=== PATIENT | female | born 1960 | race Caucasian/White ===

== ENCOUNTER 2019-12-25 00:15 | Inpatient (IN) | payer MEDICAID ==
[~2019-12-25] VITALS: Ht 160 cm; Wt 59.0 kg
[2019-12-25] VITALS (7 sets, daily range): BP systolic 118–145; BP diastolic 62–85
[~2019-12-25 00:15] MED LIST: AMITRIPTYLLINE PO; ENAL10TA9 PO; LORA10CA7 PO; SIMV10TA84
[2019-12-25] MEDS ORDERED: NITROGLYCERIN 0.4 MG SL TAB SL ONE (00:30)
[2019-12-25] MEDS ORDERED: ASPirin 81 mg TAB PO ONE (00:30)
[2019-12-25 00:52] LABS: Basophils # (auto) 0.1 10 ^3/uL (0-0.2); Basophils % (auto) 0.7 % (0.0-2.0); Eosinophils # (auto) 0.1 10 ^3/uL (0-0.8); Eosinophils % (auto) 0.6 % (0.0-7.0); Hematocrit 42.8 % (36.0-46.0); Hemoglobin 13.9 g/dL (12.2-16.2); Lymphocytes # (auto) 1.5 10 ^3/uL (0.4-5.4); Lymphocytes % (auto) 8.3 % (10.0-50.0); Mean Corpuscular Hemoglobin 29.2 pg (28.0-32.0); Mean Corpuscular Hgb Conc. 32.4 g/dL (32.0-36.0); Mean Corpuscular Volume 89.9 fL (80.0-100.0); Monocytes # (auto) 1.3 10 ^3/uL (0-1.3); Monocytes % (auto) 6.8 % (0.0-12.0); Neutrophils # (auto) 15.6 10 ^3/uL (1.6-8.6); Neutrophils % (auto) 83.6 % (37.0-80.0); Platelet Count (auto) 250 10^3/uL (140-450); Red Blood Cells 4.76 10^6/uL (4.0-5.20); Red Cell Distribution Width 15.8 % (11.8-14.3); White Blood Cell 18.6 10^3/uL (4.4-10.8)
[2019-12-25] MEDS ORDERED: MORPHINE SULFATE 4 MG/ML SYR/VIAL IV ONE (01:00)
[2019-12-25] MEDS ORDERED: ONDANSETRON HCL 4 MG/2 ML VIAL IV ONE (01:00)
[2019-12-25 01:07] LABS: INR 1.09 (0.9-1.15); Partial Thromboplastin Time 24.5 sec (23.64-32.05)
[2019-12-25 01:12] LABS: Potassium 3.6 mmol/L (3.5-5.1)
[2019-12-25 01:15] LABS: Albumin 4.1 g/dL (3.4-5.0); BUN/Creatinine Ratio 9.1; Magnesium 1.8 mg/dL (1.6-2.6)
[2019-12-25 01:18] LABS: Bilirubin, Total 0.6 mg/dL (0.2-1.0); Total Protein 7.6 g/dL (6.4-8.2)
[2019-12-25] MEDS ORDERED: PROPOFOL 0 ML IV ONE (02:42)
[2019-12-25] MEDS ORDERED: LORazepam 0.5 MG TAB PO PRN (03:30)
[2019-12-25] MEDS ORDERED: NITROGLYCERIN 0.4 MG SL TAB SL PRN (03:30)
[2019-12-25] MEDS ORDERED: ZOLPIDEM TARTRATE 5 MG TAB PO PRN (03:30)
[2019-12-25] MEDS ORDERED: ONDANSETRON HCL 4 MG/2 ML VIAL IV PRN (03:30)
--- NOTE | 2019-12-25 04:45 | NUR ---
ASSUMED PATIENT CARE Telemetry admit from ER JAS GONZÁLSE admitted to Telemetry unit. Patient oriented to Miranda Alva, primary RN, unit, room, bed, and unit policies regarding patient care and visiting hours. Patient now on continuous telemetry monitoring, tele box #[id number] and telemetry reading on arrival to unit is SR 94 . Patient is on room air, weighed by bed scale and encouraged to call if they need something. All questions and concerns addressed, patient verbalized understanding. Note:
--- NOTE | 2019-12-25 04:50 | NUR ---
SEIZURE AND FALL PRECAUTIONS IN PLACE.
[2019-12-25] MEDS ORDERED: TIZA4TAB3 PO (05:17)
[2019-12-25] MEDS ORDERED: LEVE500T3 PO (05:17)
[2019-12-25] MEDS ORDERED: ASPI325T25 PO (05:17)
[2019-12-25] MEDS ORDERED: CITA-73 PO (05:17)
[2019-12-25] MEDS ORDERED: MONT10TA34 PO (05:17)
[2019-12-25] MEDS ORDERED: LEVO125T7 PO (05:17)
[2019-12-25] MEDS ORDERED: FENO160T8 PO (05:17)
--- NOTE | 2019-12-25 06:00 | NUR ---
PAGED HOSPITALIST PATIENT BLOOD PRESSURE 170/82, PRN NOT ORDERED. PATIENT NEEDS DIET ORDER. PATIENT REPORTS THAT SHE HAD SEIZURE IN ER; PRN NOT ORDERED.
--- NOTE | 2019-12-25 06:45 | NUR ---
PATIENT BLOOD PRESSURE 170/82, PRN NOT ORDERED. PATIENT NEEDS DIET ORDER. PATIENT REPORTS THAT SHE HAD SEIZURE IN ER; PRN NOT ORDERED.
[2019-12-25] MEDS: LORATADINE 10 MG TAB PO SCH (08:51)
[2019-12-25] MEDS: ASPirin 81 mg TAB PO SCH (08:51)
[2019-12-25] MEDS: CLOPIDOGREL BISULFATE 75 MG TAB PO SCH (08:52)
[2019-12-25] MEDS: DOCUSATE SOD 100 MG CAP PO SCH (08:52)
[2019-12-25] MEDS ORDERED: CARVEDILOL 3.125 MG TAB PO SCH (10:00)
[2019-12-25] MEDS ORDERED: LISINOPRIL 10 MG TAB PO SCH (10:00)
[2019-12-25] MEDS ORDERED: ENOXAPARIN SOD 60 MG/0.6 ML SYRINGE SC SCH (10:00)
[2019-12-25] MEDS ORDERED: OMEP-263 PO (10:46)
[2019-12-25] MEDS ORDERED: GABA300C10 PO (10:48)
[2019-12-25] MEDS ORDERED: TOPI200T43 PO (10:48)
[2019-12-25] MEDS ORDERED: ATOR1TAB PO (10:51)
--- NOTE | 2019-12-25 11:15 | NUR ---
Dr. Vanegas at bed side to see pt, doctor discussed the plan of care with pt. Orders received to request the records from pt's care navigator Dr. Lynn, to restart the home medications, and to do an EKG, doctor informed of pt not having a diet, pt having high BP in the morning and no BP prn medication, and pt c/o chest pain and no pain medication ordered.
[2019-12-25 11:28] LABS: Calcium 10.6 mg/dL (8.5-10.1); Magnesium 1.9 mg/dL (1.6-2.6); Potassium 3.6 mmol/L (3.5-5.1)
--- NOTE | 2019-12-25 11:30 | NUR ---
Chester/ANASTACIA / project reservoir engineer at bed side to see pt, as per Chester pt will be schedule for the heart cath for tomorrow, orders received to give a one time dose of Morphine 2 mg IV for chest pain now, to order a cardiac diet and Chester will look at pt's chart to order prn BP medications.
[2019-12-25 11:33] LABS: BUN/Creatinine Ratio 13.1
[2019-12-25] MEDS ORDERED: MORPHINE SULF INJ 2 MG/ML SYRINGE 1ML IV ONE (11:45)
--- NOTE | 2019-12-25 11:45 | NUR ---
Dr. Vanegas at unit, doctor informed of critical troponin lab value and given pt's EKG to see, orders received to prep pt for laboratory apparatus glass grinder today.
[2019-12-25 12:06] LABS: Basophils # (auto) 0 10 ^3/uL (0-0.2); Basophils % (auto) 0.4 % (0.0-2.0); Eosinophils # (auto) 0.1 10 ^3/uL (0-0.8); Eosinophils % (auto) 0.7 % (0.0-7.0); Hematocrit 36.4 % (36.0-46.0); Hemoglobin 11.7 g/dL (12.2-16.2); Lymphocytes # (auto) 2.7 10 ^3/uL (0.4-5.4); Lymphocytes % (auto) 20.5 % (10.0-50.0); Mean Corpuscular Hemoglobin 28.8 pg (28.0-32.0); Mean Corpuscular Hgb Conc. 32.1 g/dL (32.0-36.0); Mean Corpuscular Volume 89.5 fL (80.0-100.0); Monocytes # (auto) 0.9 10 ^3/uL (0-1.3); Monocytes % (auto) 6.6 % (0.0-12.0); Neutrophils # (auto) 9.5 10 ^3/uL (1.6-8.6); Neutrophils % (auto) 71.8 % (37.0-80.0); Platelet Count (auto) 211 10^3/uL (140-450); Red Blood Cells 4.07 10^6/uL (4.0-5.20); White Blood Cell 13.2 10^3/uL (4.4-10.8)
[2019-12-25] MEDS ORDERED: LIDOCAINE 2%HCL (LOCAL ANESTH.) INJ 20ML MDV ONE (12:22)
[2019-12-25] MEDS ORDERED: IOHEXOL 350 MG/ML 100ML IJ ONE (12:22)
[2019-12-25] MEDS ORDERED: PROMETHAZINE HCL 25 MG/ML 1ML IV ONE (12:30)
--- NOTE | 2019-12-25 12:40 | NUR ---
Pt taken to catholic priest.
[2019-12-25] MEDS ORDERED: cloNIDine HCL 0.1 MG TAB PO PRN (12:45)
[2019-12-25] MEDS ORDERED: hydrALAZINE HCL 20 MG/ML VL IV PRN (12:45)
[2019-12-25] MEDS ORDERED: fentaNYL CITRATE 100 MCG/2 ML VL ONE (12:56)
[2019-12-25] MEDS ORDERED: MIDAZOLAM HCL 1MG/1ML-2 ML VIAL ONE (12:56)
[2019-12-25] MEDS ORDERED: SODIUM CHL 0.9% 0 ML ONE (12:58)
[2019-12-25] MEDS ORDERED: ANGIOMAX 250 MG VIAL IV ONE (12:58)
[2019-12-25] MEDS ORDERED: HEPARIN SODIUM (PORCINE) 5000 UNITS/ML 1ML VIAL ONE (12:58)
[2019-12-25] MEDS ORDERED: VERAPAMIL 2.5MG/ML INJ 2ML VIAL IV ONE (12:58)
[2019-12-25] MEDS ORDERED: DEXTROSE (50%) 50ML SYRG IV PRN (13:30)
[2019-12-25] MEDS ORDERED: ONDANSETRON HCL 4 MG/2 ML VIAL ONE (13:37)
[2019-12-25] MEDS: GABAPENTIN 300 MG CAP PO SCH ×3 (14:00→22:19)
--- NOTE | 2019-12-25 15:09 | NUR ---
Pt back in the room from technology lab teacher, rt wrist vascular band, as per technology lab teacher nurse start deflating vasc band starting 1515, v/s BP 118/73, HR 78, O2 sat 98% at 2 lit of O2 via n/c, will continue to monitor pt.
--- NOTE | 2019-12-25 15:15 | NUR ---
Vascular band Removed 2 ml of air from vascular band, no bleeding noticed, will continue to monitor pt.
--- NOTE | 2019-12-25 15:45 | NUR ---
Vascular band Attempted to removed 2 ml of air from vascular band, noticed bleeding, no air removed will monitor for 30 min.
--- NOTE | 2019-12-25 16:15 | NUR ---
Vascular band No more bleeding noticed at this time, removed 2 ml of air from vascular band, no bleeding noticed, will continue to monitor pt.
--- NOTE | 2019-12-25 16:45 | NUR ---
Vascular band Attempted to removed 2 ml of air from vascular band, noticed bleeding, no air removed will monitor for 30 min.
[2019-12-25] MEDS: InsuLIN REG 1unit/0.01ml Soln (100units/ml) SC SCH ×2 (17:00→22:00)
[2019-12-25] MEDS: ACCU-CHEK COMFORT CURVE STRIP VI SCH ×2 (17:00→22:26)
--- NOTE | 2019-12-25 17:15 | NUR ---
Vascular band No more bleeding noticed at this time, removed 2 ml of air from vascular band, no bleeding noticed, will continue to monitor pt.
--- NOTE | 2019-12-25 17:45 | NUR ---
Vascular band Removed 2 ml of air from vascular band, no bleeding noticed, will continue to monitor pt.
--- NOTE | 2019-12-25 18:15 | NUR ---
Vascular band No bleeding noticed at this time, removed 2 ml of air from rt wrist vascular band, no bleeding noticed, will continue to monitor pt.
--- NOTE | 2019-12-25 18:40 | NUR ---
Vascular band Attempted to remove 2 ml of air from rt wrist vascular band, noticed bleeding at this time, reinsert the 2 ml of air to the vascular band, will monitor pt for 30 min.
--- NOTE | 2019-12-25 20:41 | NUR ---
VASCULAR BAND. REMAINING 2MLS REMOVED. NO BLEEDING NOTED. VASCULAR BAND REMAINS ON, WILL ASSESS IN 15 MIN.
--- NOTE | 2019-12-25 21:10 | NUR ---
VASCULAR BAND REMOVED. DRESSED WITH STERILE GAUZE AND TEGADERM. NO BLEEDING NOTED. DRESSING IS CLEAN, DRY AND INTACT. PATIENT TOLERATED WELL. WILL CONTINUE TO MONITOR.
[2019-12-25] MEDS ORDERED: ATORVASTATIN 20 MG TAB PO SCH ×2 (22:00)
[2019-12-25] MEDS ORDERED: AMITRIPTYLINE HCL 25 MG TAB PO SCH (22:00)
[2019-12-25] MEDS: levETIRAcetam 500 MG TAB PO SCH (22:17)
[2019-12-25] MEDS: METOPROLOL TARTRATE 25 MG TAB PO SCH (22:19)
--- NOTE | 2019-12-25 22:28 | NUR ---
DRESSING AT RIGHT WRIST CLEAN, DRY AND INTACT.
--- NOTE | 2019-12-25 22:29 | NUR ---
PATIENT UP TO RESTROOM WITH STANDBY ASSISTANCE. STEADY GAIT NOTED.
[2019-12-26] VITALS (7 sets, daily range): BP systolic 84–117; BP diastolic 51–75
[2019-12-26] MEDS: GABAPENTIN 300 MG CAP PO SCH ×2 (06:20→13:55)
[2019-12-26 06:24] LABS: Basophils # (auto) 0 10 ^3/uL (0-0.2); Basophils % (auto) 0.5 % (0.0-2.0); Eosinophils # (auto) 0.2 10 ^3/uL (0-0.8); Eosinophils % (auto) 2.7 % (0.0-7.0); Hematocrit 34.7 % (36.0-46.0); Hemoglobin 11.6 g/dL (12.2-16.2); Lymphocytes # (auto) 2.2 10 ^3/uL (0.4-5.4); Lymphocytes % (auto) 27.2 % (10.0-50.0); Mean Corpuscular Hemoglobin 30.4 pg (28.0-32.0); Mean Corpuscular Hgb Conc. 33.5 g/dL (32.0-36.0); Mean Corpuscular Volume 90.6 fL (80.0-100.0); Monocytes # (auto) 0.7 10 ^3/uL (0-1.3); Monocytes % (auto) 8.7 % (0.0-12.0); Neutrophils % (auto) 60.9 % (37.0-80.0); Platelet Count (auto) 174 10^3/uL (140-450); Red Blood Cells 3.83 10^6/uL (4.0-5.20); White Blood Cell 8.2 10^3/uL (4.4-10.8)
[2019-12-26] MEDS: InsuLIN REG 1unit/0.01ml Soln (100units/ml) SC SCH ×3 (06:25→17:00)
[2019-12-26] MEDS: ACCU-CHEK COMFORT CURVE STRIP VI SCH ×3 (06:26→17:00)
[2019-12-26 06:44] LABS: Albumin 3.3 g/dL (3.4-5.0); Calcium 10.6 mg/dL (8.5-10.1); Magnesium 2.1 mg/dL (1.6-2.6); Potassium 3.7 mmol/L (3.5-5.1)
[2019-12-26 06:49] LABS: BUN/Creatinine Ratio 10.2; Bilirubin, Total 0.7 mg/dL (0.2-1.0); Total Protein 6.4 g/dL (6.4-8.2)
[2019-12-26] MEDS ORDERED: LEVOTHYROXINE SODIUM 50 MCG TAB PO SCH (07:00)
--- NOTE | 2019-12-26 08:00 | NUR ---
Received pt resting in bed, call light within reach, rt wrist dressing clean and dry, no pain noted or reported, will continue to monitor pt.
[2019-12-26] MEDS: LORATADINE 10 MG TAB PO SCH (09:11)
[2019-12-26] MEDS: DOCUSATE SOD 100 MG CAP PO SCH (09:12)
[2019-12-26] MEDS: METOPROLOL TARTRATE 25 MG TAB PO SCH (09:13)
[2019-12-26] MEDS: levETIRAcetam 500 MG TAB PO SCH (09:13)
[2019-12-26] MEDS: CLOPIDOGREL BISULFATE 75 MG TAB PO SCH (09:13)
[2019-12-26] MEDS: ASPirin 81 mg TAB PO SCH (09:14)
[2019-12-26] MEDS ORDERED: LISINOPRIL 20 MG TAB PO SCH (10:00)
[2019-12-26] MEDS ORDERED: CITALOPRAM HYDROBR 20 MG TAB PO SCH (10:00)
[2019-12-26] MEDS ORDERED: MONTELUKAST SODIUM 10 MG TAB PO SCH (10:00)
--- NOTE | 2019-12-26 11:50 | NUR ---
Dr. Vanegas at bed side to see pt, doctor discussed the plan of care with pt.
--- NOTE | 2019-12-26 12:06 | NUR ---
1130 12/26/19 - Faxed to [employer] at [phone] the following face sheet, Order for [facility] life vest, H/P, EKG, Echo, progress notes, pending approval and delivery.
--- NOTE | 2019-12-26 14:50 | NUR ---
Chester, TRAILHEAD CONSTRUCTION WORKER / cardiology in to see pt.
[2019-12-26] MEDS ORDERED: ASPI81CH43 PO (16:05)
[2019-12-26] MEDS ORDERED: CLOP75TA28 PO (16:05)
[2019-12-26] MEDS ORDERED: CAR3125T PO (16:05)
[2019-12-26] MEDS ORDERED: SACU1TAB PO (16:05)
--- NOTE | 2019-12-26 18:09 | NUR ---
Informed pt and pt's daughter Emily that as per Dr. Vanegas the pt's calcium level is high and pt needs to have a mammogram and a chest CT scan done to r/o any malignancies, discussed with pt's daughter the plan of care.
--- NOTE | 2019-12-26 18:35 | NUR ---
[employer] vest counter sales representative at bed side to measure and educate pt.
--- NOTE | 2019-12-26 19:55 | NUR ---
PATIENT DISCHARGED PATIENT OFF FLOOR VIA WHEELCHAIR. DAUGHTER BRYSON PRESENT IN MAIN LOBBY FOR VAC PRESS OPERATOR. ALL BELONGINGS WITH PATIENT. DISCHARGE INSTRUCTIONS AND PAPERWORK WITH PATIENT. INSTRUCTIONS REVIEWED WITH PATIENT; PATIENT VERBALIZED UNDERSTANDING. ZOLLE VEST WITH PATIENT. NO S/SX OF DISTRESS, SOB OR PAIN. INSTRUCTED PATIENT TO RETURN TO ER OR CALL 911 IF CHEST PAIN CONTINUES. TELE BOX 69 RETURNED TO TELE MONITORS. IVS DISCONTINUED, APPLIED PRESSURE AND DRESSED. PATIENT TOLERATED WELL. NO BLEEDING NOTED.
[2019-12-26] MEDS ORDERED: CARVEDILOL 3.125 MG TAB PO SCH (22:00)
[2019-12-26] MEDS ORDERED: SACUBITRIL-VALSARTAN 24mg/26mg TAB PO SCH (22:00)
== END 2019-12-26 19:55 | disposition home or self-care (01) | DRG 174 ==
LOC: ER 00:15 → EDBD 00:15 → TELE 00:16 → TELE-WESTW 04:41
PROVIDERS: ADMIT Hospitalist; ATTEND Internal Medicine
PROC: 4A023N7 Measurement of Cardiac Sampling and Pressure, Left Heart, Percutaneous Approach (ICD-10-PCS; principal; 2019-12-25)
PROC: B2111ZZ Fluoroscopy of Multiple Coronary Arteries using Low Osmolar Contrast (ICD-10-PCS; 2019-12-25)
PROC: B2151ZZ Fluoroscopy of Left Heart using Low Osmolar Contrast (ICD-10-PCS; 2019-12-25)
PROC: 027035Z Dilation of Coronary Artery, One Artery with Two Drug-eluting Intraluminal Devices, Percutaneous Approach (ICD-10-PCS; 2019-12-25)
PROC: 02703ZZ Dilation of Coronary Artery, One Artery, Percutaneous Approach (ICD-10-PCS; 2019-12-25)
DX: I21.4 Non-ST elevation (NSTEMI) myocardial infarction (principal); I16.0 Hypertensive urgency; E03.9 Hypothyroidism, unspecified; E11.9 Type 2 diabetes mellitus without complications; E78.5 Hyperlipidemia, unspecified; E83.52 Hypercalcemia; I11.0 Hypertensive heart disease with heart failure; I25.10 Atherosclerotic heart disease of native coronary artery without angina pectoris; F17.210 Nicotine dependence, cigarettes, uncomplicated; I25.2 Old myocardial infarction; Z80.3 Family history of malignant neoplasm of breast; Z80.41 Family history of malignant neoplasm of ovary; Z82.3 Family history of stroke; Z82.49 Family history of ischemic heart disease and other diseases of the circulatory system; Z90.710 Acquired absence of both cervix and uterus; Z90.89 Acquired absence of other organs; Z88.1 Allergy status to other antibiotic agents; Z88.8 Allergy status to other drugs, medicaments and biological substances; Z88.6 Allergy status to analgesic agent; I50.22 Chronic systolic (congestive) heart failure
CPT/HCPCS: 36415; 71045; 71250; 80048; 80053; 80061; 82962; 83036; 83735; 84439; 84443; 84484; 85025; 85379; 85610; 85730; 87040; 92920; 92928; 93005; 93306; 93458; 96374; 96375; 99152; 99153; C1874; C1887; G0378; J2250; J2405; J2704

== ENCOUNTER 2022-10-01 10:37 | Emergency (ER) | payer MEDICAID ==
[~2022-10-01] VITALS: Ht 170.2 cm; Wt 81.8 kg
[~2022-10-01 10:37] MED LIST changes: -AMITRIPTYLLINE PO; +ASPI81CH43 PO; +ATOR-47 PO; +CAR3125T PO; +CITA-73 PO; +CLOP75TA28 PO; -ENAL10TA9 PO; +FENO160T8 PO; +GABA300C10 PO; +LEVE500T3 PO; +LEVO125T7 PO; +MONT-8 PO; +OMEP-263 PO; +SACU1TAB PO; -SIMV10TA84; +TIZA4TAB7 PO; +TOPI200T43 PO
[2022-10-01 11:42] LABS: Basophils # (auto) 0.1 10 ^3/uL (0-0.2); Monocytes # (auto) 0.8 10 ^3/uL (0-1.3); Nucleated Red Blood Cells % 0.1 %; Red Cell Distribution Width 17.7 % (11.8-14.3)
[2022-10-01 11:45] LABS: Potassium 4.2 mmol/L (3.5-5.1)
[2022-10-01 11:46] LABS: Eosinophils # (auto) 0.1 10 ^3/uL (0-0.8); Hematocrit 44.8 % (36.0-46.0); Hemoglobin 14.4 g/dL (12.2-16.2); Lymphocytes # (auto) 3.4 10 ^3/uL (0.4-5.4); Lymphocytes % (auto) 26.5 % (10.0-50.0); Mean Corpuscular Hemoglobin 24.5 pg (28.0-32.0); Mean Corpuscular Hgb Conc. 32.2 g/dL (32.0-36.0); Mean Corpuscular Volume 76.2 fL (80.0-100.0); Monocytes % (auto) 6.2 % (0.0-12.0); Neutrophils # (auto) 8.4 10 ^3/uL (1.6-8.6); Neutrophils % (auto) 65.3 % (37.0-80.0); Red Blood Cells 5.88 10^6/uL (4.0-5.20); White Blood Cell 12.8 10^3/uL (4.4-10.8)
[2022-10-01 11:52] LABS: Albumin 4.5 g/dL (3.4-5.0); BUN/Creatinine Ratio 19.4 (10.0-20.0); Bilirubin, Total 0.9 mg/dL (0.2-1.0); Total Protein 7.4 g/dL (6.4-8.2)
[2022-10-01 11:56] LABS: Calcium 12.5 mg/dL (8.5-10.1)
[2022-10-01] MEDS ORDERED: SODIUM CHLORIDE 0.9% 1,000 ML IV ONE ×2 (14:00→16:00)
[2022-10-01 15:01] LABS: Urine Bacteria NONE SEEN /hpf (None Seen); Urine Blood Negative /uL (Negative); Urine Mucus FEW (None Seen); Urine Specific Gravity 1.041 (1.001-1.035); Urine WBC 20 /hpf (0 - 5)
[2022-10-01] MEDS ORDERED: ONDA-144 PO (15:15)
[2022-10-01 15:37] LABS: Basophils # (auto) 0.1 10 ^3/uL (0-0.2); Basophils % (auto) 0.9 % (0.0-2.0); Eosinophils # (auto) 0.1 10 ^3/uL (0-0.8); Hemoglobin 10.7 g/dL (12.2-16.2); Lymphocytes # (auto) 3.7 10 ^3/uL (0.4-5.4); Monocytes # (auto) 0.8 10 ^3/uL (0-1.3); Nucleated Red Blood Cells % 0.1 %
[2022-10-01 15:39] LABS: Eosinophils % (auto) 0.9 % (0.0-7.0); Hematocrit 33.6 % (36.0-46.0); Lymphocytes % (auto) 34.4 % (10.0-50.0); Mean Corpuscular Hemoglobin 24.4 pg (28.0-32.0); Mean Corpuscular Hgb Conc. 31.8 g/dL (32.0-36.0); Mean Corpuscular Volume 76.8 fL (80.0-100.0); Monocytes % (auto) 7.3 % (0.0-12.0); Neutrophils # (auto) 6.1 10 ^3/uL (1.6-8.6); Neutrophils % (auto) 56.5 % (37.0-80.0); Red Blood Cells 4.38 10^6/uL (4.0-5.20); Red Cell Distribution Width 17.6 % (11.8-14.3); White Blood Cell 10.8 10^3/uL (4.4-10.8)
[2022-10-01 16:19] LABS: Calcium 9.4 mg/dL (8.5-10.1); Potassium 3.6 mmol/L (3.5-5.1)
[2022-10-01 16:23] LABS: BUN/Creatinine Ratio 20.8 (10.0-20.0); Bilirubin, Total 0.5 mg/dL (0.2-1.0); Total Protein 5.2 g/dL (6.4-8.2)
[2022-10-01 17:59] LABS: Basophils # (auto) 0.1 10 ^3/uL (0-0.2); Eosinophils # (auto) 0.1 10 ^3/uL (0-0.8); Monocytes # (auto) 0.7 10 ^3/uL (0-1.3)
[2022-10-01 18:02] LABS: Eosinophils % (auto) 0.9 % (0.0-7.0); Hematocrit 36.4 % (36.0-46.0); Hemoglobin 11.5 g/dL (12.2-16.2); Lymphocytes # (auto) 3.5 10 ^3/uL (0.4-5.4); Lymphocytes % (auto) 36.4 % (10.0-50.0); Mean Corpuscular Hemoglobin 24.3 pg (28.0-32.0); Mean Corpuscular Hgb Conc. 31.7 g/dL (32.0-36.0); Mean Corpuscular Volume 76.7 fL (80.0-100.0); Monocytes % (auto) 7.3 % (0.0-12.0); Neutrophils # (auto) 5.3 10 ^3/uL (1.6-8.6); Neutrophils % (auto) 54.4 % (37.0-80.0); Nucleated Red Blood Cells % 0.2 %; Red Blood Cells 4.75 10^6/uL (4.0-5.20); Red Cell Distribution Width 17.3 % (11.8-14.3); White Blood Cell 9.7 10^3/uL (4.4-10.8)
[2022-10-01 19:35] VITALS: BP 139/87
[2022-10-01] MEDS ORDERED: ONDANSETRON ODT 4 MG TAB PO ONE (19:45)
== END 2022-10-01 19:52 | disposition home or self-care (01) ==
LOC: EDBD 10:37 → ER 10:37
DX: K59.00 Constipation, unspecified (principal); D50.9 Iron deficiency anemia, unspecified; E78.5 Hyperlipidemia, unspecified; I10 Essential (primary) hypertension; F17.210 Nicotine dependence, cigarettes, uncomplicated; Z90.710 Acquired absence of both cervix and uterus
CPT/HCPCS: 36415; 74176; 80053; 81001; 83605; 83690; 84484; 85025; 93005; 96360; 96361; 99284; J7030; Q0162

== ENCOUNTER 2022-12-29 14:45 | Inpatient (IN) | payer MEDICAID ==
[2022-12-29] VITALS (33 sets, daily range): BP systolic 119–143; BP diastolic 50–86; PULSE 80–101; RESP 11–22; TEMP 97.2–99.4; O2SAT 92–99
[~2022-12-29] VITALS: Ht 160 cm; Wt 48.2 kg
[~2022-12-29 14:45] MED LIST changes: +FENO160T PO; -FENO160T8 PO; +GABA-1250 PO; -GABA300C10 PO; +LORA10CA PO; -LORA10CA7 PO; -OMEP-263 PO; +OMEP-448 PO; +ONDA-144 PO; +TIZA-142 PO; -TIZA4TAB7 PO
[2022-12-29] MEDS ORDERED: ONDANSETRON HCL 4 MG/2 ML VIAL ONE (15:02)
[2022-12-29] MEDS ORDERED: ANGIOMAX 250 MG VIAL IV ONE (15:10)
[2022-12-29] MEDS ORDERED: fentaNYL CITRATE 100 MCG/2 ML VL ONE (15:11)
[2022-12-29] MEDS ORDERED: MIDAZOLAM HCL 2MG/2ML 2ml VIAL (1mg/ml) ONE (15:11)
[2022-12-29] MEDS ORDERED: VERAPAMIL 2.5MG/ML INJ 2ML VIAL IV ONE (15:11)
[2022-12-29] MEDS ORDERED: SODIUM CHL 0.9% 50 ML ONE (15:11)
[2022-12-29] MEDS ORDERED: LIDOCAINE 2%HCL (LOCAL ANESTH.) INJ 10ml MDV ONE (15:11)
[2022-12-29] MEDS ORDERED: HEPARIN SODIUM (PORCINE) 5000 UNITS/ML 1ML VIAL ONE (15:11)
[2022-12-29] MEDS ORDERED: IODIXANOL 320MG/ML 100ML BTL IV ONE (15:12)
[2022-12-29] MEDS ORDERED: MORPHINE SULFATE INJ 2 MG/ml SYRG IV PRN (15:15)
[2022-12-29] MEDS ORDERED: HEPARIN SODIUM (PORCINE) 5000 UNITS/ML 1ML VIAL IV ONE (15:15)
[2022-12-29] MEDS ORDERED: IPRATROPIUM BROM 0.5 MG/2.5ML INH SOL NEB PRN (15:15)
[2022-12-29] MEDS ORDERED: ALBUTEROL SULF 2.5 MG/0.5ML(0.5%) NEB SOLN NEB PRN (15:15)
[2022-12-29] MEDS ORDERED: ONDANSETRON HCL 4 MG/2 ML VIAL IV ONE (15:15)
[2022-12-29] MEDS ORDERED: NITROGLYCERIN 0.4 MG SL TAB SL PRN (15:15)
[2022-12-29] MEDS ORDERED: DOCUSATE SOD 100 MG CAP PO PRN (15:15)
[2022-12-29 15:22] LABS: Eosinophils # (auto) 0.1 10 ^3/uL (0-0.8); Eosinophils % (auto) 0.5 % (0.0-7.0); Hemoglobin 12.2 g/dL (12.2-16.2); Monocytes # (auto) 1.7 10 ^3/uL (0-1.3); Monocytes % (auto) 8.2 % (0.0-12.0); Nucleated Red Blood Cells % 0.1 %; White Blood Cell 21.1 10^3/uL (4.4-10.8)
[2022-12-29 15:24] LABS: Basophils # (auto) 0.2 10 ^3/uL (0-0.2); Basophils % (auto) 0.8 % (0.0-2.0); Hematocrit 38.5 % (36.0-46.0); Lymphocytes # (auto) 3.5 10 ^3/uL (0.4-5.4); Lymphocytes % (auto) 16.7 % (10.0-50.0); Mean Corpuscular Hgb Conc. 31.6 g/dL (32.0-36.0); Mean Corpuscular Volume 79.1 fL (80.0-100.0); Neutrophils # (auto) 15.6 10 ^3/uL (1.6-8.6); Neutrophils % (auto) 73.8 % (37.0-80.0); Red Blood Cells 4.87 10^6/uL (4.0-5.20); Red Cell Distribution Width 17.9 % (11.8-14.3)
[2022-12-29] MEDS ORDERED: EPINEPHrine HCL 1 MG/10 ML SYRG ONE (15:26)
[2022-12-29] MEDS ORDERED: TICAGRELOR 90 MG TAB ONE (15:51)
[2022-12-29] MEDS ORDERED: METOPROLOL TARTRATE 25 MG TAB PO ONE (16:15)
[2022-12-29 16:23] LABS: Albumin 3.9 g/dL (3.4-5.0); Calcium 11.1 mg/dL (8.5-10.1); Magnesium 1.8 mg/dL (1.6-2.6); Potassium 3.4 mmol/L (3.5-5.1)
[2022-12-29 16:28] LABS: BUN/Creatinine Ratio 14.7 (10.0-20.0); Bilirubin, Total 0.5 mg/dL (0.2-1.0); Total Protein 6.3 g/dL (6.4-8.2)
[2022-12-29] MEDS: ATORVASTATIN 20 MG TAB PO SCH (16:53)
[2022-12-29] MEDS: SODIUM CHLORIDE 0.9% 1,000 ML IV SCH (16:54)
[2022-12-29] MEDS ORDERED: POTASSIUM EFFERVESENT TAB 25 MEQ PO ONE (17:00)
[2022-12-29] MEDS: MORPHINE SULFATE INJ 2 MG/ml SYRG IV PRN (20:37)
[2022-12-29] MEDS: ONDANSETRON HCL 4 MG/2 ML VIAL IV PRN (20:46)
[2022-12-29] MEDS ORDERED: TICAGRELOR 90 MG TAB PO SCH (22:00)
[2022-12-29] MEDS: levETIRAcetam 500 MG TAB PO SCH (22:39)
[2022-12-29] MEDS: METOPROLOL TARTRATE 25 MG TAB PO SCH (22:39)
[2022-12-29] MEDS: TICAGRELOR 90 MG TAB PO SCH (22:39)
[2022-12-29] MEDS: TOPIRAMATE 100 MG TAB PO SCH (22:40)
[2022-12-29] MEDS: GABAPENTIN 300 MG CAP PO SCH (22:40)
[2022-12-30] VITALS (33 sets, daily range): BP systolic 85–146; BP diastolic 44–82; PULSE 69–92; RESP 8–22; TEMP 97–98.3; O2SAT 93–100
[2022-12-30] MEDS: MORPHINE SULFATE INJ 2 MG/ml SYRG IV PRN (01:40)
[2022-12-30] MEDS: ONDANSETRON HCL 4 MG/2 ML VIAL IV PRN ×3 (01:40→18:41)
[2022-12-30 05:12] LABS: Albumin 3.4 g/dL (3.4-5.0); Calcium 10.5 mg/dL (8.5-10.1); Potassium 3.7 mmol/L (3.5-5.1)
[2022-12-30 05:18] LABS: BUN/Creatinine Ratio 18.8 (10.0-20.0); Bilirubin, Total 0.7 mg/dL (0.2-1.0); Total Protein 6.5 g/dL (6.4-8.2)
[2022-12-30 05:32] LABS: Eosinophils # (auto) 0.2 10 ^3/uL (0-0.8)
[2022-12-30 05:35] LABS: Basophils # (auto) 0 10 ^3/uL (0-0.2); Basophils % (auto) 0.2 % (0.0-2.0); Hematocrit 37.2 % (36.0-46.0); Hemoglobin 11.5 g/dL (12.2-16.2); Lymphocytes % (auto) 19.1 % (10.0-50.0); Mean Corpuscular Hemoglobin 24.5 pg (28.0-32.0); Mean Corpuscular Hgb Conc. 30.9 g/dL (32.0-36.0); Mean Corpuscular Volume 79.2 fL (80.0-100.0); Monocytes # (auto) 1.8 10 ^3/uL (0-1.3); Monocytes % (auto) 8.7 % (0.0-12.0); Red Cell Distribution Width 18.2 % (11.8-14.3); White Blood Cell 21.1 10^3/uL (4.4-10.8)
[2022-12-30] MEDS: GABAPENTIN 300 MG CAP PO SCH ×3 (05:46→22:37)
[2022-12-30] MEDS: SODIUM CHLORIDE 0.9% 1,000 ML IV SCH (08:36)
[2022-12-30] MEDS: TOPIRAMATE 100 MG TAB PO SCH ×2 (10:00→22:37)
[2022-12-30] MEDS ORDERED: PATIENTS OWN MEDICATION (Atorvastatin Calcium 1 TAB) PO SCH (10:00)
[2022-12-30] MEDS: CITALOPRAM HYDROBR 20 MG TAB PO SCH (10:00)
[2022-12-30] MEDS: ATORVASTATIN 20 MG TAB PO SCH (10:14)
[2022-12-30] MEDS: LEVOTHYROXINE SODIUM 50 MCG TAB PO SCH (10:15)
[2022-12-30] MEDS: ASPirin 81 mg TAB PO SCH (10:15)
[2022-12-30] MEDS: MONTELUKAST SODIUM 10 MG TAB PO SCH (10:16)
[2022-12-30] MEDS: METOPROLOL TARTRATE 25 MG TAB PO SCH ×2 (10:16→22:00)
[2022-12-30] MEDS: TICAGRELOR 90 MG TAB PO SCH ×2 (10:16→22:40)
[2022-12-30] MEDS: levETIRAcetam 500 MG TAB PO SCH ×2 (10:17→22:40)
[2022-12-30] MEDS ORDERED: DEXTROSE (50%) 50ML SYRG IV PRN ×2 (17:15)
[2022-12-30] MEDS: ACCU-CHEK COMFORT CURVE STRIP VI SCH (18:00)
[2022-12-30] MEDS ORDERED: InsuLIN REG 1unit/0.01ml Soln (100units/ml) SC SCH (18:00)
[2022-12-30] MEDS ORDERED: ACCU-CHEK COMFORT CURVE STRIP VI SCH (18:00)
[2022-12-30] MEDS: InsuLIN REG 1unit/0.01ml Soln (100units/ml) SC SCH (18:00)
[2022-12-30] MEDS ORDERED: ALBUTEROL SULF 2.5 MG/0.5ML(0.5%) NEB SOLN NEB ONE (18:15)
[2022-12-30] MEDS ORDERED: ALBUTEROL SULF 2.5 MG/0.5ML(0.5%) NEB SOLN NEB PRN (18:15)
[2022-12-30] MEDS ORDERED: IPRATROPIUM BROM 0.5 MG/2.5ML INH SOL NEB ONE (18:15)
[2022-12-31] VITALS (16 sets, daily range): BP systolic 90–115; BP diastolic 56–70; PULSE 64–88; RESP 13–18; TEMP 97.3–98; O2SAT 95–100
[2022-12-31] MEDS: ACCU-CHEK COMFORT CURVE STRIP VI SCH ×3 (00:16→08:35)
[2022-12-31] MEDS: SODIUM CHLORIDE 0.9% 1,000 ML IV SCH (03:14)
[2022-12-31 04:56] LABS: Basophils # (auto) 0.1 10 ^3/uL (0-0.2); Eosinophils # (auto) 0.3 10 ^3/uL (0-0.8); Monocytes # (auto) 1.2 10 ^3/uL (0-1.3); Monocytes % (auto) 8.3 % (0.0-12.0); Nucleated Red Blood Cells % 0.1 %
[2022-12-31 04:59] LABS: Basophils % (auto) 0.4 % (0.0-2.0); Eosinophils % (auto) 2.2 % (0.0-7.0); Hematocrit 36.3 % (36.0-46.0); Hemoglobin 11.3 g/dL (12.2-16.2); Lymphocytes # (auto) 4.1 10 ^3/uL (0.4-5.4); Lymphocytes % (auto) 29.7 % (10.0-50.0); Mean Corpuscular Hgb Conc. 31.3 g/dL (32.0-36.0); Mean Corpuscular Volume 79.9 fL (80.0-100.0); Neutrophils # (auto) 8.3 10 ^3/uL (1.6-8.6); Neutrophils % (auto) 59.4 % (37.0-80.0); Red Blood Cells 4.54 10^6/uL (4.0-5.20); Red Cell Distribution Width 17.6 % (11.8-14.3); White Blood Cell 13.9 10^3/uL (4.4-10.8)
[2022-12-31 05:20] LABS: Calcium 10.7 mg/dL (8.5-10.1); Potassium 3.6 mmol/L (3.5-5.1)
[2022-12-31 05:22] LABS: BUN/Creatinine Ratio 18.2 (10.0-20.0)
[2022-12-31] MEDS: GABAPENTIN 300 MG CAP PO SCH (05:39)
[2022-12-31] MEDS: InsuLIN REG 1unit/0.01ml Soln (100units/ml) SC SCH ×3 (05:40→11:47)
[2022-12-31] MEDS: IPRATROPIUM BROM 0.5 MG/2.5ML INH SOL NEB SCH ×2 (07:23→14:47)
[2022-12-31] MEDS: TOPIRAMATE 100 MG TAB PO SCH (08:32)
[2022-12-31] MEDS: LEVOTHYROXINE SODIUM 50 MCG TAB PO SCH (08:33)
[2022-12-31] MEDS: ASPirin 81 mg TAB PO SCH (08:33)
[2022-12-31] MEDS: TICAGRELOR 90 MG TAB PO SCH (08:33)
[2022-12-31] MEDS: levETIRAcetam 500 MG TAB PO SCH (08:33)
[2022-12-31] MEDS: MONTELUKAST SODIUM 10 MG TAB PO SCH (08:33)
[2022-12-31] MEDS: CITALOPRAM HYDROBR 20 MG TAB PO SCH (08:33)
[2022-12-31] MEDS: METOPROLOL TARTRATE 25 MG TAB PO SCH (08:34)
[2022-12-31] MEDS ORDERED: MET25T PO (11:14)
[2022-12-31] MEDS ORDERED: TICA90TA PO (11:14)
[2022-12-31] MEDS ORDERED: ATOR80TA PO (11:14)
== END 2022-12-31 16:33 | disposition home or self-care (01) | DRG 175 ==
LOC: EDBD 14:45 → ER 14:45 → TELE 16:28 → ICU CENTRL 17:20 → DOU IN ICU 17:44
PROVIDERS: ADMIT Internal Medicine; ATTEND Internal Medicine
PROC: 4A023N7 Measurement of Cardiac Sampling and Pressure, Left Heart, Percutaneous Approach (ICD-10-PCS; 2022-12-29)
PROC: B211YZZ Fluoroscopy of Multiple Coronary Arteries using Other Contrast (ICD-10-PCS; 2022-12-29)
PROC: B215YZZ Fluoroscopy of Left Heart using Other Contrast (ICD-10-PCS; 2022-12-29)
PROC: B41GYZZ Fluoroscopy of Left Lower Extremity Arteries using Other Contrast (ICD-10-PCS; 2022-12-29)
PROC: 02703ZZ Dilation of Coronary Artery, One Artery, Percutaneous Approach (ICD-10-PCS; principal; 2022-12-30)
DX: T82.867A Thrombosis due to cardiac prosthetic devices, implants and grafts, initial encounter (principal); I21.09 ST elevation (STEMI) myocardial infarction involving other coronary artery of anterior wall; E11.9 Type 2 diabetes mellitus without complications; D72.829 Elevated white blood cell count, unspecified; E03.9 Hypothyroidism, unspecified; E78.5 Hyperlipidemia, unspecified; I25.10 Atherosclerotic heart disease of native coronary artery without angina pectoris; G40.909 Epilepsy, unspecified, not intractable, without status epilepticus; Y83.1 Surgical operation with implant of artificial internal device as the cause of abnormal reaction of the patient, or of later complication, without mention of misadventure at the time of the procedure; I10 Essential (primary) hypertension; I49.3 Ventricular premature depolarization; J44.9 Chronic obstructive pulmonary disease, unspecified; Z79.82 Long term (current) use of aspirin; Z88.1 Allergy status to other antibiotic agents; Z88.3 Allergy status to other anti-infective agents; Z88.6 Allergy status to analgesic agent; Z90.710 Acquired absence of both cervix and uterus; Z91.199 Patient's noncompliance with other medical treatment and regimen due to unspecified reason; Z88.8 Allergy status to other drugs, medicaments and biological substances; Z88.2 Allergy status to sulfonamides; Y92.89 Other specified places as the place of occurrence of the external cause; Z71.6 Tobacco abuse counseling
CPT/HCPCS: 36415; 71045; 80048; 80053; 80061; 82962; 83735; 84443; 84484; 85025; 87040; 87081; 92920; 93005; 93306; 93458; 94640; 96374; 99152; 99291; G0378; J2001; J2250; J2405; Q9967

== ENCOUNTER 2023-02-14 22:01 | Inpatient (IN) | payer MEDICAID ==
[~2023-02-14] VITALS: Ht 162.6 cm; Wt 63.6 kg
[~2023-02-14 22:01] MED LIST changes: +ATOR80TA PO; -CAR3125T PO; -CLOP75TA28 PO; +MET25T PO; +TICA90TA PO
[2023-02-14 22:18] VITALS: PULSE 104; RESP 15; O2SAT 96
[2023-02-14 22:39] LABS: Basophils # (auto) 0.2 10 ^3/uL (0-0.2); Eosinophils # (auto) 0.2 10 ^3/uL (0-0.8); Hemoglobin 11.6 g/dL (12.2-16.2); Nucleated Red Blood Cells % 0.1 %; Red Cell Distribution Width 16.8 % (11.8-14.3)
[2023-02-14 22:40] LABS: Basophils % (auto) 0.8 % (0.0-2.0); Hematocrit 36.6 % (36.0-46.0); Lymphocytes # (auto) 4.9 10 ^3/uL (0.4-5.4); Lymphocytes % (auto) 21.7 % (10.0-50.0); Mean Corpuscular Hemoglobin 24.6 pg (28.0-32.0); Mean Corpuscular Hgb Conc. 31.7 g/dL (32.0-36.0); Mean Corpuscular Volume 77.6 fL (80.0-100.0); Monocytes # (auto) 1.6 10 ^3/uL (0-1.3); Monocytes % (auto) 6.9 % (0.0-12.0); Neutrophils # (auto) 15.6 10 ^3/uL (1.6-8.6); Neutrophils % (auto) 69.6 % (37.0-80.0); Red Blood Cells 4.72 10^6/uL (4.0-5.20); White Blood Cell 22.5 10^3/uL (4.4-10.8)
[2023-02-14 22:50] LABS: INR 0.98 (0.9-1.15); Partial Thromboplastin Time 27.2 SEC (24.5-34.5); Prothrombin Time 10.3 sec (9.3-11.8)
[2023-02-14 22:52] LABS: Alanine Aminotransferase 19 U/L (7-40); Alkaline Phosphatase 102 U/L (46-116); Anion Gap 8.2 (5-15); Aspartate Aminotransferase 14 U/L (13-40); Bilirubin, Total 0.4 mg/dL (0.2-1.0); Blood Urea Nitrogen 18 mg/dL (9-23); Calcium 11.9 mg/dL (8.7-10.4); Carbon Dioxide 21.8 mmol/L (20-30); Chloride 109 mmol/L (98-107); Glucose 116 mg/dL (74-106); Magnesium 1.9 mg/dL (1.6-2.6); Potassium 3.8 mmol/L (3.5-5.1); Sodium 139 mmol/L (136-145); Total Protein 7.2 g/dL (5.7-8.2)
[2023-02-14] MEDS ORDERED: LORazepam 2MG/ML-1ML VIAL IV PRN (23:00)
[2023-02-14] MEDS ORDERED: ONDANSETRON HCL 4 MG/2 ML VIAL IV ONE (23:00)
[2023-02-14] MEDS ORDERED: MORPHINE SULFATE 4 MG/ML SYR/VIAL IV ONE (23:00)
[2023-02-14] MEDS ORDERED: PANTOPRAZOLE 40 MG/10 ML VIAL INJ IV ONE (23:00)
[2023-02-14] MEDS ORDERED: ACETAMINOPHEN 325 MG TAB PO PRN (23:00)
[2023-02-14] MEDS ORDERED: SODIUM CHLORIDE 0.9% 1,900 ML IV ONE (23:00)
[2023-02-14] MEDS ORDERED: IOHEXOL 350 MG/ML 100ML IJ ONE (23:09)
[2023-02-15] MEDS ORDERED: PIPERACILLIN-TAZOB 3.375GM 100 ML IV SCH
[2023-02-15 00:09] LABS: Urine Bacteria NONE SEEN /hpf (None Seen); Urine Blood Negative /uL (Negative); Urine Clarity Clear (Clear); Urine Hyaline Cast FEW /lpf (0 - 2); Urine Protein, UAD TRACE (Negative); Urine Specific Gravity 1.046 (1.001-1.035); Urine Urobilinogen Normal (Negative); Urine WBC 2 /hpf (0 - 5)
[2023-02-15 00:16] LABS: Urine Color Straw (Yellow)
[2023-02-15 03:19] VITALS: PULSE 88; RESP 17; O2SAT 99
[2023-02-15] MEDS ORDERED: NITROGLYCERIN 0.4 MG SL TAB SL PRN (05:00)
[2023-02-15] MEDS ORDERED: ONDANSETRON HCL 4 MG/2 ML VIAL IV PRN (05:00)
[2023-02-15] MEDS ORDERED: MORPHINE SULFATE INJ 2 MG/ml SYRG IV PRN (05:00)
[2023-02-15] MEDS ORDERED: DEXTROSE (50%) 50ML SYRG IV PRN (05:00)
[2023-02-15] MEDS: InsuLIN REG 1unit/0.01ml Soln (100units/ml) SC SCH ×2 (06:46→12:00)
[2023-02-15] MEDS: ACCU-CHEK COMFORT CURVE STRIP VI SCH ×2 (06:46→12:26)
[2023-02-15] MEDS: GABAPENTIN 300 MG CAP PO SCH ×2 (06:50→14:06)
[2023-02-15] MEDS ORDERED: LEVOTHYROXINE SODIUM 25 MCG TAB PO SCH (07:00)
[2023-02-15 07:32] VITALS: PULSE 82; RESP 16; O2SAT 96
[2023-02-15 07:55] VITALS: PULSE 78; RESP 16; O2SAT 98
[2023-02-15] MEDS ORDERED: cefTRIAXone 1GM/50ML D5W 50 ML IV SCH (09:00)
[2023-02-15] MEDS ORDERED: METOPROLOL TARTRATE 25 MG TAB PO SCH (10:00)
[2023-02-15] MEDS ORDERED: APIXABAN 2.5 MG TAB PO SCH (10:00)
[2023-02-15] MEDS ORDERED: levoFLOXacin 500MG 100 ML IV SCH (10:00)
[2023-02-15] MEDS ORDERED: TICAGRELOR 90 MG TAB PO SCH (10:00)
[2023-02-15] MEDS ORDERED: levETIRAcetam 500 MG TAB PO SCH (10:00)
[2023-02-15] MEDS ORDERED: PANTOPRAZOLE 40 MG TAB PO SCH (10:00)
[2023-02-15 11:00] VITALS: BP 117/73; PULSE 80; RESP 17; TEMP 97.9; O2SAT 99
[2023-02-15 13:00] VITALS: BP 117/68; PULSE 73; RESP 16; TEMP 97.7; O2SAT 97
[2023-02-15] MEDS ORDERED: ATORVASTATIN 20 MG TAB PO SCH (22:00)
[2023-02-18 17:31] LABS: Hepatitis B Surface Antigen Negative (Negative); Hepatitis C Antibody Negative (Negative)
== END 2023-02-15 16:25 | disposition left against medical advice (07) | DRG 198 ==
LOC: EDBD 22:01 → ER 22:06 → TELE 02-15 05:06 → TELE-CENTR 02-15 10:14
PROVIDERS: ADMIT Internal Medicine; ATTEND Student in an Organized Health Care Education/Training Program
DX: R07.9 Chest pain, unspecified (principal); I25.10 Atherosclerotic heart disease of native coronary artery without angina pectoris; I74.2 Embolism and thrombosis of arteries of the upper extremities; D72.829 Elevated white blood cell count, unspecified; E11.9 Type 2 diabetes mellitus without complications; E03.9 Hypothyroidism, unspecified; E78.5 Hyperlipidemia, unspecified; E83.52 Hypercalcemia; K21.9 Gastro-esophageal reflux disease without esophagitis; I10 Essential (primary) hypertension; Z53.29 Procedure and treatment not carried out because of patient's decision for other reasons; I25.2 Old myocardial infarction; Z80.3 Family history of malignant neoplasm of breast; Z80.41 Family history of malignant neoplasm of ovary; Z82.3 Family history of stroke; Z82.49 Family history of ischemic heart disease and other diseases of the circulatory system; Z86.718 Personal history of other venous thrombosis and embolism; Z88.1 Allergy status to other antibiotic agents; Z88.3 Allergy status to other anti-infective agents; Z88.6 Allergy status to analgesic agent; Z90.710 Acquired absence of both cervix and uterus; Z98.61 Coronary angioplasty status; Z88.2 Allergy status to sulfonamides; Z88.8 Allergy status to other drugs, medicaments and biological substances; Z91.012 Allergy to eggs
CPT/HCPCS: 36415; 71045; 74177; 76705; 80053; 81001; 82010; 82962; 83605; 83690; 83735; 83880; 84484; 85025; 85379; 85610; 85730; 86803; 86850; 86900; 86901; 87040; 87086; 87340; 93005; 96361; 96365; 96366; 96367; 96375; C9113; G0378; J0696; J1956; J2405; J2543